=== PATIENT | male | born 1980 | race American Indian/Alaskan Native ===

== ENCOUNTER 2019-07-27 18:53 | Emergency (ER) | payer BC ==
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
[2019-07-27] MEDS ORDERED: TORADOL IM ONE (20:00)
[2019-07-27] MEDS ORDERED: FIORICET PO ONE (20:00)
[2019-07-27] MEDS ORDERED: ZOFRAN ODT PO ONE (20:00)
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
[2019-07-28 00:14] VITALS: BP 111/64
== END 2019-07-28 00:14 | disposition home or self-care (01) ==
LOC: ED 18:53
DX: G44.319 Acute post-traumatic headache, not intractable (principal); M62.838 Other muscle spasm; J45.909 Unspecified asthma, uncomplicated; Z79.899 Other long term (current) drug therapy
CPT/HCPCS: 70450; 72125; 96372; 99283; J1885; Q0162

== ENCOUNTER 2019-08-03 10:18 | Observation (INO) | payer BC ==
--- NOTE | 2019-08-03 11:31 | XRay Report ---
CHEST 2 VIEWS INDICATION: Chest Pain. COMPARISON: None FINDINGS: Support devices: None. Heart: Within normal limits. Lungs/pleura: No acute air space or interstitial disease. No pneumothorax. Additional findings: None. IMPRESSION: No acute findings. Signer Name: Yanick Marcum Jr, MD Signed: 08/03/2019 11:26 AM Workstation Name: [id number]
[2019-08-03 11:33] LABS: Basophils % (Auto) 0.4 % (0.0-1.8); Eosinophils # (Auto) 0.3 K/mm3 (0.0-0.4); Eosinophils % (Auto) 2.9 % (0.0-4.3); Hematocrit 40.2 % (35.5-45.6); Hemoglobin 13.2 gm/dl (11.8-15.2); Lymphocytes # (Auto) 2.3 K/mm3 (1.2-5.4); Lymphocytes % (Auto) 25.7 % (13.4-35.0); Mean Corpuscular HGB Conc 33 % (32-34); Mean Corpuscular Volume 82 fl (84-94); Monocytes # (Auto) 0.6 K/mm3 (0.0-0.8); Monocytes % (Auto) 6.9 % (0.0-7.3); Platelet Count 319 K/mm3 (140-440); Red Cell Distribution Width 15.7 % (13.2-15.2)
[2019-08-03] MEDS ORDERED: NITRO-BID 2% TP ONE (11:55)
[2019-08-03] MEDS ORDERED: ZOFRAN IV ONE (11:55)
[2019-08-03] MEDS ORDERED: SUBLIMAZE IV ONE (11:55)
[2019-08-03] MEDS ORDERED: ASPIRIN PO ONE (12:00)
--- NOTE | 2019-08-03 12:05 | Emergency Department Report ---
HPI - General Chief Complaint: Chest Pain Time Seen by Provider: 08/03/19 11:26 - HPI HPI: Room 44 The patient is a 31-year-old male presenting with a chief complaint of chest pain. The patient states her past 2 days he has had chest tightness. Patient states the tightness was initially intermittent but is now become constant. Patient missed a shortness of breath and pleurisy. Patient denies nausea/vomiting, diaphoresis or cough. Patient denies history of fever. The patient currently gets his pain a score of 9/10. Patient states she's never had a stress test or cardiac catheterization Location: [See above] Duration: [See above] Quality: [See above] Severity: [See above] Timing: [See above] Context: [See above] Modifying factors: [See above] Associated signs and symptoms: [see above] ED Past Medical Hx - Past Medical History Hx Asthma: Yes - Surgical History Past Surgical History?: No - Family History Family history: no significant - Social History Smoking Status: Never Smoker Substance Use Type: None - Medications Home Medications: Home Medications Medication Instructions Recorded Confirmed Last Taken Type Butalb/Acetamin/Caff 50-325-40 1 - 2 tab PO Q6HR PRN #15 tab 07/27/19 Unknown Rx [Fioricet 50-325-40] Cyclobenzaprine [Flexeril] 10 mg PO Q8H PRN #15 tablet 07/27/19 Unknown Rx Ketorolac [Toradol] 10 mg PO Q8H PRN #20 tablet 07/27/19 Unknown Rx Ondansetron [Zofran Odt] 4 mg PO Q6HR PRN #15 tab.rapdis 07/27/19 Unknown Rx ED Review of Systems ROS: Stated complaint: CHEST PAIN/SOB/HEADACHE Other details as noted in HPI Constitutional: denies: diaphoresis, fever Eyes: denies: eye pain ENT: denies: throat pain Respiratory: shortness of breath Cardiovascular: chest pain Endocrine: no symptoms reported Gastrointestinal: denies: nausea Genitourinary: denies: dysuria Musculoskeletal: denies: back pain Neurological: headache Physical Exam - Physical Exam Vital Signs: Vital Signs 08/03/19 10:37 Temperature 98.7 F Pulse Rate 78 Respiratory 18 Rate Blood Pressure 121/85 O2 Sat by Pulse 95 Oximetry Physical Exam: GENERAL: The patient is well-developed well-nourished male lying on stretcher appearing to be in moderate discomfort. Soft-spoken HEENT: Normocephalic. Atraumatic. Extraocular motions are intact. Patient has moist mucous membranes. NECK: Supple. Trachea midline CHEST/LUNGS: Clear to auscultation. There is no respiratory distress noted. HEART/CARDIOVASCULAR: Regular. There is no tachycardia. There is no gallop rub or murmur. ABDOMEN: Abdomen is soft, nontender. Patient has normal bowel sounds. There is no abdominal distention. SKIN: There is no rash. There is no edema. There is no diaphoresis. NEURO: The patient is awake, alert, and oriented. The patient is cooperative. The patient has no focal neurologic deficits. The patient has normal speech and gait. MUSCULOSKELETAL: There is no evidence of acute injury. ED Course Vital Signs 08/03/19 10:37 Temperature 98.7 F Pulse Rate 78 Respiratory 18 Rate Blood Pressure 121/85 O2 Sat by Pulse 95 Oximetry ED Medical Decision Making - Lab Data Result diagrams: 08/03/19 11:04 08/03/19 11:04 Laboratory Tests 08/03/19 08/03/19 08/03/19 11:04 11:04 12:20 WBC 8.8 RBC 4.90 Hgb 13.2 Hct 40.2 MCV 82 L MCH 27 L MCHC 33 RDW 15.7 H Plt Count 319 Lymph % (Auto) 25.7 [place] % (Auto) 6.9 Eos % (Auto) 2.9 Baso % (Auto) 0.4 Lymph # 2.3 [place] # 0.6 Eos # 0.3 Baso # 0.0 Seg Neutrophils % 64.1 Seg Neutrophils # 5.7 D-Dimer 292.36 H Sodium 139 Potassium 4.3 Chloride 100.6 Carbon Dioxide 26 Anion Gap 17 BUN 8 L Creatinine 0.7 L Estimated GFR > 60 BUN/Creatinine Ratio 11 Glucose 98 Calcium 9.0 Troponin T < 0.010 - EKG Data -: EKG Interpreted by Me EKG shows normal: sinus rhythm Rate: normal - EKG Data When compared to previous EKG there are: previous EKG unavailable Interpretation: nonspecific ST-T wave dudley (T-wave inversion in lead 3) - Radiology Data Radiology results: report reviewed (chest x-ray), image reviewed (chest x-ray) interpreted by me: Chest x-ray-no focal infiltrates, no pneumothorax [facility] [address] [place] [address] XRay Report Signed Patient: MAGEN DE LOS SANTOS MR#: [id number] : 1980 Acct:[id number] Age/Sex: 39 / M ADM Date: 08/03/19 Loc: ED Attending Dr: Ordering Physician: LAURA MONTERO MD Date of Service: 08/03/19 Procedure(s): XR chest routine 2V Accession Number(s): [id number] cc: LAURA MONTERO MD Fluoro Time In Minutes: CHEST 2 VIEWS INDICATION: Chest Pain. COMPARISON: None FINDINGS: Support devices: None. Heart: Within normal limits. Lungs/pleura: No acute air space or interstitial disease. No pneumothorax. Additional findings: None. IMPRESSION: No acute findings. Signer Name: Yanick Marcum Jr, MD Signed: 08/03/2019 11:26 AM Workstation Name: [id number] Transcribed By: TTR Dictated By: YANICK MARCUM JR, MD Electronically Authenticated By: YANICK MARCUM JR, MD Signed Date/Time: 08/03/19 112 DD/ 112 TD/TT: - Differential Diagnosis ACS, pericarditis, PE, GERD Critical care attestation.: If time is entered above; I have spent that time in minutes in the direct care of this critically ill patient, excluding procedure time. ED Disposition Clinical Impression: Chest pain, Pneumonia Disposition: OP ADMIT IP TO THIS HOSP Is pt being admited?: Yes Does the pt Need Aspirin: Yes Condition: Fair Instructions: Chest Pain (ED), Bacterial Pneumonia (ED) Time of Disposition: 14:53 (hospitalist paged (Dr Carlton))
[2019-08-03 12:16] LABS: BUN/Creatinine Ratio 11; Blood Urea Nitrogen 8 mg/dL (9-20); Hemolysis Index 1
--- NOTE | 2019-08-03 14:40 | Cat Scan Report ---
CTA CHEST WITH CONTRAST INDICATION : chest pain. TECHNIQUE: Axial imaging performed through the chest, with contrast bolus timing set to maximize opa cification of the pulmonary arteries. 3-plane MIP reformatted images were obtained. All CT scans at this location are performed using CT dose reduction for ALARA by means of automated exposure control. 100 mL of Omnipaque 350 intravenous contrast administered. Consent was obtained prior to the administ ration of the contrast. COMPARISON: No relevant comparison imaging. FINDINGS: Bolus: Contrast bolus timing is adequate. PTE: No filling defect is present to suggest PTE. Mediastinum: Heart and great vessels appear normal. No pathologic mediastinal adenopathy. Lungs: Bilateral lower lobe reticular interstitial opacities and patchy opacities, greater in the ri ght lower lobe than the left. No pleural effusion. No pulmonary consolidation. Upper abdomen: Limited imaging of the upper abdomen shows nothing acute. Bones: Degenerative changes in the spine with nothing acute. IMPRESSION: 1. No evidence of pulmonary embolus. 2. Bilateral lower lobe pneumonia, right worse than left. 3. No CHF. Signer Name: Doe Phelan MD Signed: 08/03/2019 2:36 PM Workstation Name: [id number]
[2019-08-03] MEDS ORDERED: ROCEPHIN/NS 1 GM/50 ML 1 GM/50 ML BAG IV ONE (14:52)
--- NOTE | 2019-08-03 15:21 | History and Physical Report ---
History of Present Illness Chief complaint: My chest is hurting History of present illness: 39 YO Male with Asthma presents to ED for evaluation. Pt states that he has experienced pain in his chest over the past 2 days with increasing symptoms of pain over the same time frame. Pt states that pain is 9/10, intermittent, worsened with exertion, nonradiation. Pt acknowledges diaphoresis and shortness of breath as well as decreased exercise tolerance. Pt transported to [facility] via private vehicle. Pt seen and evaluated in ED and found to have Angina as well as symptoms consistent with Diastolic CHF. Pt admitted to telemetry. Cardiology consulted in ED. Pt denies fever, chills, palpitations, productive cough, skin rash, or recent ill contacts, unilateral leg swelling, calf pain, prolonged travel/immobility, Individual/Family history of DVT/PE/Bleeding/Blood Clotting Disorders. No prior admission for review. All listed medication reconciled at time of admission. Past History Past Medical History: other (Asthma) Past Surgical History: No surgical history, Other (reviewed) Social history: single. denies: smoking, alcohol abuse, prescription drug abuse Family history: no significant family history (reviewed) Medications and Allergies Allergies Allergy/AdvReac Type Severity Reaction Status Date / Time No Known Allergies Allergy Verified 08/03/19 10:38 Home Medications Medication Instructions Recorded Confirmed Last Taken Type Butalb/Acetamin/Caff 50-325-40 1 - 2 tab PO Q6HR PRN #15 tab 07/27/19 Unknown Rx [Fioricet 50-325-40] Cyclobenzaprine [Flexeril] 10 mg PO Q8H PRN #15 tablet 07/27/19 Unknown Rx Ketorolac [Toradol] 10 mg PO Q8H PRN #20 tablet 07/27/19 Unknown Rx Ondansetron [Zofran Odt] 4 mg PO Q6HR PRN #15 tab.rapdis 07/27/19 Unknown Rx Active Meds: Active Medications Azithromycin 500 mg/ Sodium (Chloride) 250 mls @ 250 mls/hr IV ONCE ONE; Pr otocol Stop: 08/03/19 16:51 Review of Systems Constitutional: no weight loss, no weight gain, no fever, no chills Ears, nose, mouth and throat: no ear pain, no ear discharge, no tinnitis, no decreased hearing, no nose pain Cardiovascular: chest pain, shortness of breath, decreased exercise tolerance, no rapid/irregular heart beat, no edema Respiratory: no cough, no cough with sputum, no excessive sputum, no hemoptysis Gastrointestinal: no abdominal pain, no nausea, no vomiting, no diarrhea, no constipation Genitourinary Male: no dysuria, no hematuria, no flank pain, no discharge, no urinary frequency, no urinary hesitancy Rectal: no pain, no incontinence, no bleeding Musculoskeletal: no neck stiffness, no neck pain, no shooting arm pain, no arm numbness/tingling, no low back pain Integumentary: no rash, no pruritis, no redness, no sores, no wounds Neurological: no transient paralysis, no paralysis, no weakness, no parathesias, no numbness, no tingling, no seizures Psychiatric: no anxiety, no memory loss, no change in sleep habits, no sleep disturbances, no insomnia, no hypersomnia, no change in appetite, no change in libido Endocrine: no heat intolerance, no polyphagia, no excessive thirst, no polydipsia, no nocturia, no excessive sweating Hematologic/Lymphatic: no easy bruising, no easy bleeding, no lymphadenopathy, no lymphedema Allergic/Immunologic: no urticaria, no allergic rhinitis, no persistent infecti ons, no anaphylaxis Exam - Constitutional Vitals: Temp Pulse Resp BP Pulse Ox 98.7 F 72 14 142/92 99 08/03/19 10:37 08/03/19 13:30 08/03/19 13:30 08/03/19 13:30 08/03/19 13:30 General appearance: Present: mild distress - EENT Eyes: Present: PERRL ENT: hearing intact, clear oral mucosa - Neck Neck: Present: supple, normal ROM - Respiratory Respiratory effort: normal Respiratory: bilateral: CTA - Cardiovascular Heart Sounds: Present: S1 & S2. Absent: rub, click - Extremities Extremities: pulses symmetrical, No edema Peripheral Pulses: within normal limits - Abdominal General gastrointestinal: Present: soft, non-tender, non-distended, normal bowel sounds Male genitourinary: Present: normal - Integumentary Integumentary: Present: clear, warm, dry - Musculoskeletal Musculoskeletal: gait normal, strength equal bilaterally - Psychiatric Psychiatric: appropriate mood/affect, intact judgment & insight - Neurologic Neurologic: CNII-XII intact, moves all extremities Results - Labs CBC & Chem 7: 08/03/19 19:11 08/03/19 16:27 Labs: Abnormal lab results 08/03/19 08/03/19 08/03/19 Range/Units 11:04 11:04 12:20 MCV 82 L (84-94) fl MCH 27 L (28-32) pg RDW 15.7 H (13.2-15.2) % D-Dimer 292.36 H (0-234) ng/mlDDU BUN 8 L (9-20) mg/dL Creatinine 0.7 L (0.8-1.5) mg/dL Assessment and Plan - Patient Problems (1) Angina at rest Current Visit: Yes Status: Acute Plan to address problem: Admit to telemetry, serial cardiac enzymes, ekg, stress test, morphine, supplemental oxygen, nitro, aspirin (2) Diastolic CHF Current Visit: Yes Status: Acute Qualifiers: Heart failure chronicity: acute Qualified Code(s): I50.31 - Acute diastolic (congestive) heart failure Plan to address problem: Echo, cardiology consulted, strict I/O, daily weight, monitor uop q shift, supplemental oxygen, pulse oximetry, bnp, (3) Obesity hypoventilation syndrome Current Visit: Yes Status: Acute Plan to address problem: supplemental oxygen, pulse oximetry, balanced diet, increased physical activity at discharge, outpatient bariatric surgery evaluation (4) DVT prophylaxis Current Visit: Yes Status: Acute Plan to address problem: SCD to BLE while in bed, Pt ambulatory
[2019-08-03] MEDS ORDERED: TYLENOL PO PRN (15:52)
[2019-08-03] MEDS ORDERED: PROVENTIL IH PRN (15:52)
[2019-08-03] MEDS ORDERED: ZOFRAN IV PRN (15:52)
[2019-08-03] MEDS ORDERED: SODIUM CHLORIDE FLUSH SYRINGE 10 ML IV PRN ×2 (15:52)
[2019-08-03] MEDS ORDERED: ZITHROMAX 500 MG in NACL 0.9% 250ML 250 ML IV ONE (15:52)
[2019-08-03 17:15] LABS: BUN/Creatinine Ratio 11; Blood Urea Nitrogen 8 mg/dL (9-20); Calcium 8.7 mg/dL (8.4-10.2); Hemolysis Index 9
[2019-08-03 19:34] LABS: Basophils % (Auto) 0.4 % (0.0-1.8); Eosinophils # (Auto) 0.2 K/mm3 (0.0-0.4); Eosinophils % (Auto) 2.4 % (0.0-4.3); Hematocrit 40.1 % (35.5-45.6); Hemoglobin 12.9 gm/dl (11.8-15.2); Lymphocytes # (Auto) 1.6 K/mm3 (1.2-5.4); Lymphocytes % (Auto) 19.3 % (13.4-35.0); Mean Corpuscular HGB Conc 32 % (32-34); Mean Corpuscular Volume 83 fl (84-94); Monocytes # (Auto) 0.3 K/mm3 (0.0-0.8); Monocytes % (Auto) 3.6 % (0.0-7.3); Platelet Count 317 K/mm3 (140-440); Red Blood Count 4.82 M/mm3 (3.65-5.03)
[2019-08-03] MEDS: SODIUM CHLORIDE FLUSH SYRINGE 10 ML IV SCH (21:04)
[2019-08-03] MEDS ORDERED: NORCO 5/325 PO PRN (22:39)
[2019-08-04] MEDS: SODIUM CHLORIDE FLUSH SYRINGE 10 ML IV SCH (09:35)
--- NOTE | 2019-08-04 10:42 | Consultation ---
History of Present Illness Consult date: 08/04/19 Consult reason: chest pain History of present illness: 39 year old -Russian male presenting with chest pain at rest. He has symptoms of shortness of breath and wa cardiac consultation to rule out ischemic coronary artery disease Past History Past Medical History: other (Asthma) Past Surgical History: No surgical history, Other (reviewed) Social history: single. denies: smoking, alcohol abuse, prescription drug abuse Family history: no significant family history (reviewed) Medications and Allergies Allergies Allergy/AdvReac Type Severity Reaction Status Date / Time No Known Allergies Allergy Verified 08/03/19 10:38 Home Medications Medication Instructions Recorded Confirmed Last Taken Type Butalb/Acetamin/Caff 50-325-40 1 - 2 tab PO Q6HR PRN #15 tab 07/27/19 Unknown Rx [Fioricet 50-325-40] Cyclobenzaprine [Flexeril] 10 mg PO Q8H PRN #15 tablet 07/27/19 Unknown Rx Ketorolac [Toradol] 10 mg PO Q8H PRN #20 tablet 07/27/19 Unknown Rx Ondansetron [Zofran Odt] 4 mg PO Q6HR PRN #15 tab.rapdis 07/27/19 Unknown Rx Active Meds: Active Medications Acetaminophen (Tylenol) 650 mg PO Q4H PRN PRN Reason: Pain MILD(1-3)/Fever >100.5/LEMUS Last Admin: 08/03/19 20:22 Dose: 650 mg Documented by: Acetaminophen/Hydrocodone Bitart ([place] 5/325) 1 each PO Q4H PRN PRN Reason: Pain, Moderate (4-6) Last Admin: 08/03/19 23:19 Dose: 1 each Documented by: Albuterol (Proventil) 2.5 mg IH Q4HRT PRN PRN Reason: Shortness Of Breath Ondansetron HCl (Zofran) 4 mg IV Q8H PRN PRN Reason: Nausea And Vomiting Sodium Chloride (Sodium Chloride Flush Syringe 10 Ml) 10 ml IV BID YESSY Last Admin: 08/04/19 09:35 Dose: 10 ml Documented by: Sodium Chloride (Sodium Chloride Flush Syringe 10 Ml) 10 ml IV PRN PRN PRN Reason: LINE FLUSH Sodium Chloride (Sodium Chloride Flush Syringe 10 Ml) 10 ml IV PRN PRN PRN Reason: LINE FLUSH Review of Systems All systems: negative Cardiovascular: chest pain Physical Examination Vital Signs Temp Pulse Resp BP Pulse Ox 98.7 F 78 18 121/85 96 08/03/19 10:32 08/03/19 10:32 08/03/19 10:32 08/03/19 10:32 08/03/19 10:32 General appearance: no acute distress, well-nourished, obese HEENT: Positive: PERRL, Mucus Membranes Moist Neck: Positive: neck supple, trachea midline Cardiac: Positive: Reg Rate and Rhythm, S1/S2. Negative: Audible Murmur Lungs: Positive: clear to auscultation, Normal Breath Sounds Neuro: Positive: Grossly Intact Abdomen: Positive: Soft, Active Bowel Sounds. Negative: Tender, Distended Male genitourinary: Positive: normal Skin: Positive: Clear Incision: Cardiac Cath Site Musculoskeletal: No Pain, Normal Range of Motion Extremities: Present: normal. Absent: edema Results 08/03/19 19:11 08/03/19 16:27 CBC 08/03/19 08/03/19 Range/Units 11:04 19:11 WBC 8.8 8.1 (4.5-11.0) K/mm3 RBC 4.90 4.82 (3.65-5.03) M/mm3 Hgb 13.2 12.9 (11.8-15.2) gm/dl Hct 40.2 40.1 (35.5-45.6) % Plt Count 319 317 (140-440) K/mm3 Lymph # 2.3 1.6 (1.2-5.4) K/mm3 Mcdonald # 0.6 0.3 (0.0-0.8) K/mm3 Eos # 0.3 0.2 (0.0-0.4) K/mm3 Baso # 0.0 0.0 (0.0-0.1) K/mm3 Comprehensive Metabolic Panel 08/03/19 08/03/19 Range/Units 11:04 16:27 Sodium 139 138 (137-145) mmol/L Potassium 4.3 4.5 (3.6-5.0) mmol/L Chloride 100.6 102.5 (98-107) mmol/L Carbon Dioxide 26 24 (22-30) mmol/L BUN 8 L 8 L (9-20) mg/dL Creatinine 0.7 L 0.7 L (0.8-1.5) mg/dL Glucose 98 82 (75-100) mg/dL Calcium 9.0 8.7 (8.4-10.2) mg/dL - EKG Interpretation EKG: sinus rhythm EKG interpretations - Telemetry EKG Rhythm: Sinus Rhythm Assessment and Plan 1. Chest pain 2. History of asthma 3. CVA obesity 4. Abnormal chest x-ray showing bilateral pulmonary infiltrates white count is normal. Serum troponin levels are normal. EKG shows normal sinus rhythm normal axis and nonspecific ST-T changes Patient's weight exceeds weight limit for the stress MPI table. Patient's will have further cardiac workup as an outpatient in the hospital that has a table that can accomodate his weight Plan. Review patient's echocardiogram. Rule out left ventricular diastolic dysfunction
[2019-08-04 11:36] VITALS: BP 113/59
[2019-08-04] MEDS ORDERED: LEVAQUIN PO SCH (14:00)
--- NOTE | 2019-08-04 15:00 | Discharge Summary ---
Providers - Providers Date of Admission: 08/03/19 15:52 Date of discharge: 08/04/19 Attending physician: LATONYA GAR 08/03/19 Consult to Cardiac Rehabilitation [CONS] Routine Reason For Exam: Phase I 08/03/19 15:53 Consult to Cardiology [CONS] Routine Consulting Provider: CHRIS DESAI Reason For Exam: angina Primary care physician: PIANO TECHNICIAN Hospitalization Condition: Fair Pertinent studies: CXR CTA chest 2d echocardiogram Hospital course: 35-year-old male with morbid obesity and history of asthma presented to the hospital with worsening chest pain. In the ER and workup showed bilateral pulmonary infiltrates on chest x-ray. Troponins were negative. No acute changes on EKG. CT of the chest showed no pulmonary embolism.. 2-D echo was obtained and showed preserved EF. Patient was evaluated by cardiology and recommended outpatient stress test. Patient was placed on antibiotic for possible comminuted acquired pneumonia and discharged home in stable condition with outpatient follow-up. Discharge plan and management were discussed with the patient and he was agreeable with the plan. Discharge diagnosis: 1. Chest pain, atypical, likely from PNA - stress test as outpt per cardiology, 2d echo showed preserved Ef 2. History of asthma 3. Morbid obesity -dietary and exercise recommendation as appropriate and as tolerated provided 4. Abnormal chest x-ray showing bilateral pulmonary infiltrates white count is normal - Possible CAP, treat with abx for total 5 days. Disposition: TO HOME OR SELFCARE Time spent for discharge: 34 minutes Core Measure Documentation - Palliative Care Palliative Care/ Comfort Measures: Not Applicable - Core Measures Any of the following diagnoses?: none Exam - Constitutional Vitals: Temp Pulse Resp BP Pulse Ox 97.4 F L 62 18 113/59 94 08/04/19 11:33 08/04/19 11:33 08/04/19 11:33 08/04/19 11:33 08/04/19 11:33 General appearance: Present: no acute distress, obese - EENT Eyes: Present: PERRL ENT: hearing intact, clear oral mucosa - Neck Neck: Present: supple, normal ROM - Respiratory Respiratory effort: normal Respiratory: bilateral: CTA - Cardiovascular Heart Sounds: Present: S1 & S2. Absent: rub, click - Extremities Extremities: pulses symmetrical, No edema Peripheral Pulses: within normal limits - Abdominal General gastrointestinal: Present: soft, non-tender, non-distended, normal bowel sounds - Integumentary Integumentary: Present: clear, warm, dry - Musculoskeletal Musculoskeletal: gait normal, strength equal bilaterally - Psychiatric Psychiatric: appropriate mood/affect, intact judgment & insight - Neurologic Neurologic: CNII-XII intact, moves all extremities Plan Activity: advance as tolerated Weight Bearing Status: Weight Bear as Tolerated Diet: low fat, low salt Follow up with: PRIMARY CARE, [Primary Care Provider] - 3-5 Days WILBUR CEBALLOS MD [Staff Physician] - 7 Days Prescriptions: levoFLOXacin [Levaquin TAB] 750 mg PO Q24H #5 tablet
== END 2019-08-04 16:12 | disposition home or self-care (01) ==
LOC: ED 10:18 → INTOOBSV 15:52 → 4A 15:52
PROVIDERS: ADMIT Internal Medicine; ATTEND Internal Medicine
DX: I20.9 Angina pectoris, unspecified (principal); I50.9 Heart failure, unspecified; E66.2 Morbid (severe) obesity with alveolar hypoventilation; J18.9 Pneumonia, unspecified organism; J45.909 Unspecified asthma, uncomplicated; Z68.42 Body mass index [BMI] 45.0-49.9, adult
CPT/HCPCS: 36415; 71046; 71275; 80048; 84484; 85025; 85379; 87040; 87116; 93005; 93010; 93306; 96365; 96367; 96375; 99284; G0378; J0456; J0696; J2405; J3010; J7050; Q9967

== ENCOUNTER 2020-07-15 20:28 | Emergency (ER) | payer BC ==
[2020-07-15 21:46] VITALS: BP 161/94
--- NOTE | 2020-07-15 23:31 | Emergency Department Report ---
Chief Complaint: Recheck/Abnormal Lab/Rx Stated Complaint: CT SCAN Time Seen by Provider: 07/15/20 23:15 - HPI History of Present Illness: This is a 40-year-old male presents the ED initially with complaint of intermittent coughing that began today. Patient states coughing with mucus productive and had one episode where he saw blood in his mucus after hard bouts of coughing. Patient states he went to the urgent care where he got x-rayed and COVID tested which were both negative. Patient states he was recommended to get a CT scan of the chest. Patient denies any fever, chills, nausea vomiting, any sick contact, shortness of breath, chest pain. - ROS Review of Systems: As noted in HPI - Exam Vital Signs: Vital Signs 07/15/20 21:37 Temperature 98.3 F Pulse Rate 68 Respiratory 18 Rate Blood Pressure 161/94 O2 Sat by Pulse 98 Oximetry Physical Exam: GENERAL: Alert and oriented x3, no apparent distress, Normal Gait, atraumatic. HEAD: Head is normocephalic and a-traumatic. NECK: Supple. Non edematous, No lymphadenopathy or thyromegaly. LUNGS: Symetrical with respiration, No wheezing, no rales or crackles, CTAB. HEART: S1, S2 present, regular rate and rhythm without murmur, no rubs, no gallops. Non tender to palpation SKIN: Warm and dry, No lesions, No ulceration or induration present. MSE screening note: Focused history and physical exam performed. Due to findings the following was ordered: ED Medical Decision Making - Medical Decision Making This 40-year-old male presents today with bronchitis. Patient received a chest x-ray today and Covid testing urgent care today which was negative. I discussed with patient that he is not having any symptoms and can have a CT chest outpatient if that was recommended by the urgent care. Discussed with the patient not coming to the ER for CT scanning is not medical emergency due to the fact that patient was having no symptoms indicated over CT scan. I did discuss with patient if he was having any new symptoms or worsening symptoms to return to ED immediately. Discussed with patient he may take decongestants as well as cough suppressant for his symptoms. Patient understands instructions. Patient is in no acute distress or has any respiratory distress. His vital signs are normal. ED Disposition for MSE Clinical Impression: Bronchitis Disposition: DC-01 TO HOME OR SELFCARE Is pt being admited?: No Does the pt Need Aspirin: No Condition: Stable Instructions: Acute Bronchitis (ED) Additional Instructions: Make sure to follow up with the primary care physician as discussed. Take all your medications as you've been prescribed. If you have any worsening symptoms or develop new symptoms please return to ED immediately. Prescriptions: guaiFENesin ER [Mucinex ER] 600 mg PO DAILY #7 tablet.er Benzonatate [Tessalon Perles] 100 mg PO Q8HR #30 capsule Referrals: PRIMARY CARE, [Primary Care Provider] - 3-5 Days [facility] [Outside] - 3-5 Days [facility] [Outside] - 3-5 Days Forms: Work/School Release Form(ED) Time of Disposition: 23:41
== END 2020-07-16 00:30 | disposition home or self-care (01) ==
LOC: ED 20:28
DX: J40 Bronchitis, not specified as acute or chronic (principal)
CPT/HCPCS: 99282